=== PATIENT | male | born 1965 ===

== ENCOUNTER 2021-09-08 11:03 | Inpatient (IN) | payer BC, SELFPAY ==
[2021-09-08] MEDS ORDERED: Propofol 1,000 MG/100 ML VIAL IV ONE (11:06)
[2021-09-08 11:24] LABS: Actual Bicarbonate (HCO3a) 24.9 mEq/L (22-28); Analyzer IN Cardio ER; Base Excess (BEa) 1.3 mEq/L (-2.0 to +3.0); CO2 Tension 36.3 mmHg (35.0-45.0); Calcium, Ionized (arterial) 0.93 mmol/L (1.12-1.30); Carboxyhemoglobin (COHb) 0.3 gm% (0.0-3.0); O2 Tension (PaO2), arterial 135.6 mmHg (80.0-100.0); Potassium - ABG Lab 2.32 mmol/L (3.70-5.30); pH, Arterial 7.46 (7.35-7.45)
[2021-09-08 11:25] LABS: ALV-art Gradient 68.575 mmHg (0-20); Puncture Site RBA
[2021-09-08 11:26] LABS: Hemoglobin 14.3 g/dL (14.0-18.0); Mean Corpuscular HGB CONC 33.1 g/dL (32.0-36.0); Mean Corpuscular Hemoglobin 33.2 pg (27.0-31.0); Mean Platelet Volume 8.2 fL (7.4-10.4); Platelet Count 299 thou/uL (130-400); RBC Distribution Width 11.4 % (11.5-14.5); Red Blood Cell (RBC) Count 4.29 mill/uL (4.70-6.10); White Blood Cell (WBC) Count 27.6 thou/uL (4.8-10.8)
[2021-09-08 11:44] LABS: ALT (SGPT) 36 U/L (8-55); AST (SGOT) 55 U/L (5-34); Acetaminophen Less than 10.0 mcg/mL (10.0-30.0); Albumin 3.4 g/dL (3.5-5.0); Alcohol Less than 10 mg/dL (Less than 10); Alkaline Phosphatase 56 U/L (40-110); Anion Gap 17 mmol/L (10-20); BUN (Urea Nitrogen) 10 mg/dL (8.4-25.7); Calc. Creatinine Clearance 0 mL/min (70-130); Calcium 7.3 mg/dL (7.8-10.44); Carbon Dioxide 23 mmol/L (22-29); Chloride 106 mmol/L (98-107); Estimated GFR 77; Glucose 88 mg/dL (70-105); Protein, Total 6.4 g/dL (6.0-8.3); Salicylate Less than 8.0 mg/dL (15.0-30.0); Sodium 143 mmol/L (136-145)
[2021-09-08 11:48] LABS: Band 10 % (5-11); Lymphocytes 4 % (21-51); MDiff Complete? YES; Macrocytosis SLIGHT = 6-15 cells (100X) (0-5/hpf); Monocytes 10 % (0-10); Neutrophil 76 % (42-75); Platelet Morphology Comment Appears Adequate; Polychromasia SLIGHT = 2-3 cells (100X) (0-2/hpf)
[2021-09-08 11:53] LABS: Amphetamine Not Detected (NotDetected); Barbiturates Screen Not Detected (NotDetected); Benzodiazepine Screen Not Detected (NotDetected); Cocaine Metabolite Screen Not Detected (NotDetected); Methadone Not Detected (NotDetected); Methamphetamine Not Detected (NotDetected); Opiate Screen Not Detected (NotDetected); Oxycodone Screen Not Detected (NotDetected); Phencyclidine (PCP) Not Detected (NotDetected); THC/Cannabinoid Screen Detected (NotDetected); Tricyclic Screen Not Detected (NotDetected)
[2021-09-08 12:00] LABS: Potassium 2.6 mmol/L (3.5-5.1)
[2021-09-08] MEDS ORDERED: Potassium Chloride 40 MEQ in Premix Bag 1 BAG IVPB SCH (12:30)
[2021-09-08] MEDS ORDERED: Sodium Chloride 0.9% 1,000 ML IV SCH (12:30)
[2021-09-08] MEDS ORDERED: Fentanyl CADD 100 ML IV SCH (12:30)
[2021-09-08] MEDS ORDERED: Electrolyte Replacement Protocol 1 EACH FS SCH (12:36)
[2021-09-08] MEDS ORDERED: Ondansetron ODT 4 MG TAB PO PRN ×2 (12:36)
[2021-09-08] MEDS ORDERED: Ondansetron PF 4 MG/2 ML Vial IVP PRN (12:36)
[2021-09-08] MEDS ORDERED: Lorazepam 2 MG/ML VIAL IM PRN (12:36)
[2021-09-08] MEDS ORDERED: hydrALAZINE 20 MG/ML VIAL SLOW IVP PRN (12:36)
[2021-09-08] MEDS ORDERED: Lorazepam 1 MG TAB PO PRN (12:36)
[2021-09-08] MEDS ORDERED: Acetaminophen 500 MG TAB PO PRN (12:36)
[2021-09-08] MEDS ORDERED: Labetalol HCl 100 MG/20 ML VIAL SLOW IVP PRN (12:36)
[2021-09-08 13:07] LABS: Magnesium 1.2 mg/dL (1.6-2.6)
[2021-09-08 13:25] LABS: SARS-CoV-2 NAA Rapid Test Not Detected (NotDetected)
[2021-09-08 14:57] LABS: Syphilis Antibody Nonreactive (Nonreactive); Syphilis Antibody Index 0.09 S/CO (<1.00 Non-Reactive)
[2021-09-08] MEDS ORDERED: Magnesium Sulfate In Water 4 GM in Premix Bag 1 BAG IVPB SCH (15:00)
[2021-09-08] MEDS: Lorazepam 1 MG TAB PO SCH ×2 (15:05→17:13)
[2021-09-08] MEDS: Sodium Chloride 0.9% 1,000 ML IV SCH ×2 (15:06→21:04)
[2021-09-08] MEDS: Nicotine 14 MG PATCH TD SCH (15:12)
[2021-09-08] MEDS: Thiamine HCl 200 MG/2 ML VIAL SLOW IVP SCH (15:12)
[2021-09-08] MEDS: Propofol 1,000 MG/100 ML VIAL IV PRN ×2 (16:48→21:05)
[2021-09-08] MEDS ORDERED: Folic Acid 1 MG TAB PO SCH (17:00)
[2021-09-08] MEDS ORDERED: Multivit, Therapeutic 1 TAB PO SCH (17:00)
[2021-09-08] MEDS: Potassium Chloride 20 MEQ in Premix Bag 1 BAG IVPB SCH (17:13)
[2021-09-08] MEDS: Pantoprazole 40 MG VIAL IVP SCH (21:05)
[2021-09-09] MEDS: Lorazepam 1 MG TAB PO SCH ×6 (00:42→21:48)
[2021-09-09 01:09] LABS: Anion Gap 17 mmol/L (10-20); BUN (Urea Nitrogen) 12 mg/dL (8.4-25.7); Calc. Creatinine Clearance 43 mL/min (70-130); Calcium 7.1 mg/dL (7.8-10.44); Carbon Dioxide 17 mmol/L (22-29); Chloride 111 mmol/L (98-107); Estimated GFR 38; Glucose 90 mg/dL (70-105); Potassium 3.4 mmol/L (3.5-5.1); Sodium 142 mmol/L (136-145)
[2021-09-09] MEDS: Potassium Chloride 20 MEQ in Premix Bag 1 BAG IVPB SCH ×3 (01:18→11:56)
[2021-09-09] MEDS: Propofol 1,000 MG/100 ML VIAL IV PRN ×3 (03:07→14:36)
[2021-09-09] MEDS: Sodium Chloride 0.9% 1,000 ML IV SCH ×3 (03:41→18:05)
[2021-09-09 03:53] LABS: #Basophils 0.1 thou/uL (0.0-0.2); #Eosinphils 0.1 thou/uL (0.0-0.7); #Lymphocytes 1.9 thou/uL (1.20-3.40); #Monocytes 1.9 thou/uL (0.11-0.59); %Basophils 0.3 % (0.0-1.0); %Eosinophils 0.6 % (0.0-10.0); %Lymphocytes 10.1 % (21.0-51.0); %Monocytes 9.9 % (0.0-10.0); %Neutrophils 79.1 % (42.0-75.0); Hemoglobin 12.9 g/dL (14.0-18.0); Mean Corpuscular HGB CONC 33.1 g/dL (32.0-36.0); Mean Corpuscular Hemoglobin 33.9 pg (27.0-31.0); Mean Platelet Volume 7.8 fL (7.4-10.4); Platelet Count 254 thou/uL (130-400); RBC Distribution Width 11.4 % (11.5-14.5); Red Blood Cell (RBC) Count 3.79 mill/uL (4.70-6.10); White Blood Cell (WBC) Count 18.9 thou/uL (4.8-10.8)
[2021-09-09 04:16] LABS: ALT (SGPT) 30 U/L (8-55); AST (SGOT) 58 U/L (5-34); Albumin 2.9 g/dL (3.5-5.0); Alkaline Phosphatase 53 U/L (40-110); Anion Gap 15 mmol/L (10-20); BUN (Urea Nitrogen) 12 mg/dL (8.4-25.7); Bilirubin, Total 0.5 mg/dL (0.2-1.2); Calc. Creatinine Clearance 39 mL/min (70-130); Calcium 6.9 mg/dL (7.8-10.44); Carbon Dioxide 21 mmol/L (22-29); Chloride 110 mmol/L (98-107); Estimated GFR 33; Globulin 2.9 g/dL (2.4-3.5); Glucose 90 mg/dL (70-105); Protein, Total 5.8 g/dL (6.0-8.3); Sodium 143 mmol/L (136-145)
[2021-09-09 04:39] LABS: Thyroid Stimulating Hormone 1.6824 uIU/mL (0.35-4.94)
[2021-09-09 07:17] LABS: Actual Bicarbonate (HCO3a) 20.3 mEq/L (22-28); Base Excess (BEa) -5.8 mEq/L (-2.0 to +3.0); CO2 Tension 42.2 mmHg (35.0-45.0); Calcium, Ionized (arterial) 1.01 mmol/L (1.12-1.30); Carboxyhemoglobin (COHb) 0.2 gm% (0.0-3.0); Potassium - ABG Lab 3.26 mmol/L (3.70-5.30)
[2021-09-09] MEDS: Folic Acid 1 MG TAB PO SCH (09:23)
[2021-09-09] MEDS: Pantoprazole 40 MG VIAL IVP SCH ×2 (09:24→21:49)
[2021-09-09] MEDS: Multivit, Therapeutic 1 TAB PO SCH (09:24)
[2021-09-09 11:50] LABS: Puncture Site LRA
[2021-09-09] MEDS ORDERED: Lorazepam 1 MG TAB PO PRN (12:30)
[2021-09-09] MEDS: Nicotine 14 MG PATCH TD SCH (13:02)
[2021-09-09] MEDS: Thiamine HCl 200 MG/2 ML VIAL SLOW IVP SCH (13:03)
[2021-09-09] MEDS: Atorvastatin Calcium 20 MG TAB PO SCH (21:48)
[2021-09-10] MEDS: Propofol 1,000 MG/100 ML VIAL IV PRN (01:37)
[2021-09-10 03:55] LABS: #Basophils 0.1 thou/uL (0.0-0.2); #Eosinphils 0.2 thou/uL (0.0-0.7); #Lymphocytes 1.7 thou/uL (1.20-3.40); #Monocytes 1.3 thou/uL (0.11-0.59); #Neutrophils 12.3 thou/uL (1.40-6.50); %Basophils 0.4 % (0.0-1.0); %Eosinophils 1.1 % (0.0-10.0); %Monocytes 8.3 % (0.0-10.0); %Neutrophils 79.3 % (42.0-75.0); Hemoglobin 12.1 g/dL (14.0-18.0); Mean Corpuscular Hemoglobin 35.6 pg (27.0-31.0); Mean Platelet Volume 8.3 fL (7.4-10.4); Platelet Count 213 thou/uL (130-400); RBC Distribution Width 11.3 % (11.5-14.5); Red Blood Cell (RBC) Count 3.39 mill/uL (4.70-6.10); White Blood Cell (WBC) Count 15.5 thou/uL (4.8-10.8)
[2021-09-10 04:17] LABS: Anion Gap 16 mmol/L (10-20); BUN (Urea Nitrogen) 17 mg/dL (8.4-25.7); Calc. Creatinine Clearance 35 mL/min (70-130); Calcium 6.6 mg/dL (7.8-10.44); Carbon Dioxide 17 mmol/L (22-29); Chloride 113 mmol/L (98-107); Estimated GFR 29; Glucose 80 mg/dL (70-105); Sodium 143 mmol/L (136-145)
[2021-09-10] MEDS: Lorazepam 1 MG TAB PO SCH ×3 (04:29→16:53)
[2021-09-10] MEDS: Sodium Chloride 0.9% 1,000 ML IV SCH ×3 (04:30→20:28)
[2021-09-10] MEDS: Potassium Chloride 20 MEQ in Premix Bag 1 BAG IVPB SCH ×2 (06:27→09:15)
[2021-09-10] MEDS ORDERED: Piperacillin/Tazobactam 3.375 GM in Sodium Chloride 0.9% 100 ML IVPB SCH (08:45)
[2021-09-10] MEDS: Folic Acid 1 MG TAB PO SCH (09:25)
[2021-09-10] MEDS: Multivit, Therapeutic 1 TAB PO SCH (09:25)
[2021-09-10] MEDS: Aspirin Chewable 81 MG TAB PO SCH (09:25)
[2021-09-10] MEDS: Pantoprazole 40 MG VIAL IVP SCH ×2 (09:26→20:18)
[2021-09-10] MEDS ORDERED: Lorazepam 1 MG TAB PO PRN (12:30)
[2021-09-10] MEDS: Lorazepam 0.5 MG TAB PO SCH ×3 (13:39→23:35)
[2021-09-10] MEDS: Nicotine 14 MG PATCH TD SCH (13:50)
[2021-09-10] MEDS: Piperacillin/Tazobactam 3.375 GM in Sodium Chloride 0.9% 100 ML IVPB SCH ×2 (13:51→20:18)
[2021-09-10] MEDS: Thiamine HCl 200 MG/2 ML VIAL SLOW IVP SCH (13:52)
[2021-09-10] MEDS: Lorazepam 0.5 MG TAB PO PRN (14:23)
[2021-09-10] MEDS ORDERED: Acetaminophen 500 MG TAB PO PRN (18:40)
[2021-09-10] MEDS: Atorvastatin Calcium 20 MG TAB PO SCH (20:18)
[2021-09-11 04:16] LABS: Anion Gap 21 mmol/L (10-20); BUN (Urea Nitrogen) 19 mg/dL (8.4-25.7); Calc. Creatinine Clearance 36 mL/min (70-130); Calcium 7.2 mg/dL (7.8-10.44); Carbon Dioxide 14 mmol/L (22-29); Chloride 115 mmol/L (98-107); Estimated GFR 29; Glucose 119 mg/dL (70-105); Sodium 147 mmol/L (136-145)
[2021-09-11] MEDS: Sodium Chloride 0.9% 1,000 ML IV SCH ×3 (04:42→20:03)
[2021-09-11] MEDS: Piperacillin/Tazobactam 3.375 GM in Sodium Chloride 0.9% 100 ML IVPB SCH ×2 (06:12→12:01)
[2021-09-11] MEDS: Lorazepam 0.5 MG TAB PO SCH ×2 (06:12→12:01)
[2021-09-11] MEDS: Folic Acid 1 MG TAB PO SCH (08:53)
[2021-09-11] MEDS: Multivit, Therapeutic 1 TAB PO SCH (08:53)
[2021-09-11] MEDS: Thiamine 100 MG TAB PO SCH (08:53)
[2021-09-11] MEDS: Aspirin Chewable 81 MG TAB PO SCH (08:53)
[2021-09-11] MEDS: Pantoprazole 40 MG VIAL IVP SCH ×2 (08:54→20:03)
[2021-09-11] MEDS: Potassium Chloride 20 MEQ in Premix Bag 1 BAG IVPB SCH ×2 (08:57→12:41)
[2021-09-11] MEDS ORDERED: methylPREDNISolone Sod Succ/PF 125 MG/2 ML VIAL IVP SCH (09:00)
[2021-09-11] MEDS: Nicotine 14 MG PATCH TD SCH (12:01)
[2021-09-11] MEDS: Lorazepam 2 MG/ML VIAL SLOW IVP PRN ×2 (20:03→22:38)
[2021-09-11] MEDS ORDERED: Amoxicillin/Potassium Clav 875 MG TAB PO SCH (21:00)
[2021-09-11] MEDS: Amoxicillin/Potassium Clav 875 MG TAB PO SCH (22:16)
[2021-09-11] MEDS: Atorvastatin Calcium 20 MG TAB PO SCH (22:16)
[2021-09-12] MEDS: Lorazepam 2 MG/ML VIAL SLOW IVP PRN (01:41)
[2021-09-12] MEDS ORDERED: Ziprasidone 20 MG VIAL IM SCH (01:45)
[2021-09-12] MEDS ORDERED: Sterile Water 10 ML VIAL FS PRN (01:45)
[2021-09-12] MEDS: Sodium Chloride 0.9% 1,000 ML IV SCH ×2 (04:42→13:44)
[2021-09-12 07:30] LABS: Anion Gap 17 mmol/L (10-20); BUN (Urea Nitrogen) 15 mg/dL (8.4-25.7); Calc. Creatinine Clearance 59 mL/min (70-130); Carbon Dioxide 20 mmol/L (22-29); Chloride 114 mmol/L (98-107); Estimated GFR 51; Glucose 112 mg/dL (70-105); Potassium 3.4 mmol/L (3.5-5.1); Sodium 148 mmol/L (136-145)
[2021-09-12] MEDS: Pantoprazole 40 MG VIAL IVP SCH ×2 (09:53→21:01)
[2021-09-12] MEDS: Amoxicillin/Potassium Clav 875 MG TAB PO SCH ×2 (10:28→21:01)
[2021-09-12] MEDS: Thiamine 100 MG TAB PO SCH (10:28)
[2021-09-12] MEDS: Aspirin Chewable 81 MG TAB PO SCH (10:28)
[2021-09-12] MEDS: Multivit, Therapeutic 1 TAB PO SCH (10:28)
[2021-09-12] MEDS: Folic Acid 1 MG TAB PO SCH (10:28)
[2021-09-12 13:40] VITALS: BMI 24.7
[2021-09-12] MEDS: Nicotine 14 MG PATCH TD SCH (13:44)
[2021-09-12] MEDS: Metoprolol Tartrate 50 MG TAB PO SCH (20:59)
[2021-09-12] MEDS: Atorvastatin Calcium 20 MG TAB PO SCH (21:01)
[2021-09-12] MEDS: Lorazepam 0.5 MG TAB PO PRN (22:23)
[2021-09-13] MEDS: Lorazepam 2 MG/ML VIAL SLOW IVP PRN (00:39)
[2021-09-13 05:42] LABS: #Eosinphils 0.1 thou/uL (0.0-0.7); #Lymphocytes 2.2 thou/uL (1.20-3.40); #Monocytes 1.8 thou/uL (0.11-0.59); %Basophils 0.1 % (0.0-1.0); %Eosinophils 0.7 % (0.0-10.0); %Lymphocytes 12.9 % (21.0-51.0); %Monocytes 10.5 % (0.0-10.0); %Neutrophils 75.8 % (42.0-75.0); Hemoglobin 13.6 g/dL (14.0-18.0); Mean Corpuscular HGB CONC 34.1 g/dL (32.0-36.0); Mean Corpuscular Hemoglobin 34.1 pg (27.0-31.0); Platelet Count 337 thou/uL (130-400); RBC Distribution Width 11.6 % (11.5-14.5); Red Blood Cell (RBC) Count 3.98 mill/uL (4.70-6.10); White Blood Cell (WBC) Count 17.2 thou/uL (4.8-10.8)
[2021-09-13 06:04] LABS: Anion Gap 18 mmol/L (10-20); BUN (Urea Nitrogen) 13 mg/dL (8.4-25.7); Calc. Creatinine Clearance 77 mL/min (70-130); Calcium 8.5 mg/dL (7.8-10.44); Carbon Dioxide 23 mmol/L (22-29); Chloride 107 mmol/L (98-107); Estimated GFR 71; Glucose 104 mg/dL (70-105); Phosphorus 2.8 mg/dL (2.3-4.7); Sodium 145 mmol/L (136-145)
[2021-09-13] MEDS: Sodium Chloride 0.9% 1,000 ML IV SCH ×3 (06:13→18:01)
[2021-09-13 06:19] LABS: Magnesium 0.8 mg/dL (1.6-2.6); Potassium 2.9 mmol/L (3.5-5.1)
[2021-09-13] MEDS ORDERED: Electrolyte Replacement Protocol FS PRN (06:45)
[2021-09-13] MEDS ORDERED: Potassium Chloride 20 MEQ TAB PO SCH ×3 (08:15→17:00)
[2021-09-13] MEDS ORDERED: Magnesium Sulfate 4 GM in Sodium Chloride 0.9% 250 ML 250 ML IVPB SCH (08:15)
[2021-09-13] MEDS: Lorazepam 0.5 MG TAB PO PRN ×3 (08:39→21:49)
[2021-09-13] MEDS: Aspirin Chewable 81 MG TAB PO SCH (08:41)
[2021-09-13] MEDS: Amoxicillin/Potassium Clav 875 MG TAB PO SCH ×2 (08:41→21:49)
[2021-09-13] MEDS: Folic Acid 1 MG TAB PO SCH (08:41)
[2021-09-13] MEDS: Metoprolol Tartrate 50 MG TAB PO SCH ×2 (08:42→21:49)
[2021-09-13] MEDS: Pantoprazole 40 MG VIAL IVP SCH ×2 (08:42→21:49)
[2021-09-13] MEDS: Multivit, Therapeutic 1 TAB PO SCH (08:42)
[2021-09-13] MEDS: Thiamine 100 MG TAB PO SCH (08:42)
[2021-09-13] MEDS ORDERED: Magnesium Sulfate In Water 4 GM in Premix Bag 1 BAG IVPB SCH (09:00)
[2021-09-13] MEDS: Nicotine 14 MG PATCH TD SCH (11:58)
[2021-09-13 13:51] LABS: Anion Gap 15 mmol/L (10-20); BUN (Urea Nitrogen) 13 mg/dL (8.4-25.7); Calc. Creatinine Clearance 83 mL/min (70-130); Calcium 8.5 mg/dL (7.8-10.44); Carbon Dioxide 25 mmol/L (22-29); Chloride 106 mmol/L (98-107); Estimated GFR 77; Glucose 147 mg/dL (70-105); Magnesium 2.3 mg/dL (1.6-2.6); Sodium 143 mmol/L (136-145)
[2021-09-13] MEDS: Atorvastatin Calcium 20 MG TAB PO SCH (21:48)
[2021-09-14 04:46] LABS: #Basophils 0.1 thou/uL (0.0-0.2); #Eosinphils 0.1 thou/uL (0.0-0.7); #Lymphocytes 2.4 thou/uL (1.20-3.40); #Monocytes 1.3 thou/uL (0.11-0.59); #Neutrophils 8.3 thou/uL (1.40-6.50); %Basophils 0.5 % (0.0-1.0); %Eosinophils 0.9 % (0.0-10.0); %Lymphocytes 19.7 % (21.0-51.0); %Monocytes 10.9 % (0.0-10.0); Hemoglobin 13.8 g/dL (14.0-18.0); Mean Corpuscular HGB CONC 33.4 g/dL (32.0-36.0); Mean Corpuscular Hemoglobin 33.5 pg (27.0-31.0); Mean Platelet Volume 7.7 fL (7.4-10.4); Platelet Count 364 thou/uL (130-400); RBC Distribution Width 11.5 % (11.5-14.5); Red Blood Cell (RBC) Count 4.11 mill/uL (4.70-6.10); White Blood Cell (WBC) Count 12.2 thou/uL (4.8-10.8)
[2021-09-14] MEDS: Sodium Chloride 0.9% 1,000 ML IV SCH ×2 (04:47→12:07)
[2021-09-14 05:21] LABS: Anion Gap 16 mmol/L (10-20); BUN (Urea Nitrogen) 10 mg/dL (8.4-25.7); Calc. Creatinine Clearance 101 mL/min (70-130); Calcium 8.3 mg/dL (7.8-10.44); Carbon Dioxide 25 mmol/L (22-29); Chloride 106 mmol/L (98-107); Estimated GFR 97; Glucose 100 mg/dL (70-105); Sodium 144 mmol/L (136-145)
[2021-09-14 05:32] LABS: Potassium 2.9 mmol/L (3.5-5.1)
[2021-09-14] MEDS ORDERED: Potassium Bicarbonate/Cit Ac 20 MEQ TAB PO SCH (06:00)
[2021-09-14] MEDS: Pantoprazole 40 MG VIAL IVP SCH ×2 (08:41→19:58)
[2021-09-14] MEDS: Metoprolol Tartrate 50 MG TAB PO SCH ×2 (08:43→19:58)
[2021-09-14] MEDS: Aspirin Chewable 81 MG TAB PO SCH (08:44)
[2021-09-14] MEDS: Amoxicillin/Potassium Clav 875 MG TAB PO SCH ×2 (08:44→19:58)
[2021-09-14] MEDS: Folic Acid 1 MG TAB PO SCH (08:45)
[2021-09-14] MEDS: Potassium Chloride 20 MEQ TAB PO SCH (08:46)
[2021-09-14] MEDS: Thiamine 100 MG TAB PO SCH (08:46)
[2021-09-14] MEDS: Multivit, Therapeutic 1 TAB PO SCH (08:47)
[2021-09-14] MEDS: Potassium Chloride 20 MEQ in Premix Bag 1 BAG IVPB SCH ×2 (08:56→12:07)
[2021-09-14] MEDS ORDERED: Potassium Chloride 40 MEQ in Premix Bag 1 BAG IVPB SCH (09:00)
[2021-09-14] MEDS: Nicotine 14 MG PATCH TD SCH (13:34)
[2021-09-14 14:07] LABS: Anion Gap 14 mmol/L (10-20); BUN (Urea Nitrogen) 10 mg/dL (8.4-25.7); Calc. Creatinine Clearance 105 mL/min (70-130); Calcium 8.5 mg/dL (7.8-10.44); Carbon Dioxide 28 mmol/L (22-29); Chloride 103 mmol/L (98-107); Estimated GFR 100; Glucose 130 mg/dL (70-105); Potassium 3.2 mmol/L (3.5-5.1); Sodium 142 mmol/L (136-145)
[2021-09-14] MEDS: Atorvastatin Calcium 20 MG TAB PO SCH (19:58)
[2021-09-15 04:44] LABS: #Basophils 0.1 thou/uL (0.0-0.2); #Eosinphils 0.3 thou/uL (0.0-0.7); #Lymphocytes 3.1 thou/uL (1.20-3.40); #Monocytes 1.4 thou/uL (0.11-0.59); %Basophils 0.5 % (0.0-1.0); %Eosinophils 2.1 % (0.0-10.0); %Lymphocytes 24.4 % (21.0-51.0); %Monocytes 10.8 % (0.0-10.0); %Neutrophils 62.2 % (42.0-75.0); Hemoglobin 14.1 g/dL (14.0-18.0); Mean Corpuscular HGB CONC 33.5 g/dL (32.0-36.0); Mean Corpuscular Hemoglobin 33.8 pg (27.0-31.0); Mean Platelet Volume 8.2 fL (7.4-10.4); Platelet Count 368 thou/uL (130-400); RBC Distribution Width 11.4 % (11.5-14.5); Red Blood Cell (RBC) Count 4.18 mill/uL (4.70-6.10); White Blood Cell (WBC) Count 12.8 thou/uL (4.8-10.8)
[2021-09-15 05:20] LABS: Anion Gap 14 mmol/L (10-20); BUN (Urea Nitrogen) 10 mg/dL (8.4-25.7); Calc. Creatinine Clearance 105 mL/min (70-130); Calcium 8.4 mg/dL (7.8-10.44); Carbon Dioxide 31 mmol/L (22-29); Chloride 101 mmol/L (98-107); Estimated GFR 100; Glucose 102 mg/dL (70-105); Sodium 143 mmol/L (136-145)
[2021-09-15 05:46] LABS: Magnesium 0.9 mg/dL (1.6-2.6); Potassium 2.7 mmol/L (3.5-5.1)
[2021-09-15] MEDS: Potassium Chloride 20 MEQ TAB PO SCH ×3 (06:22→11:07)
[2021-09-15] MEDS ORDERED: WATER IVPB SCH (06:30)
[2021-09-15] MEDS ORDERED: MAGNESIUM SULFATE IVPB SCH (06:30)
[2021-09-15] MEDS: Pantoprazole 40 MG VIAL IVP SCH ×2 (07:25→20:28)
[2021-09-15] MEDS: Thiamine 100 MG TAB PO SCH (07:28)
[2021-09-15] MEDS: Aspirin Chewable 81 MG TAB PO SCH (07:28)
[2021-09-15] MEDS: Amoxicillin/Potassium Clav 875 MG TAB PO SCH ×2 (07:28→20:28)
[2021-09-15] MEDS: Metoprolol Tartrate 50 MG TAB PO SCH ×2 (07:29→20:28)
[2021-09-15] MEDS: Folic Acid 1 MG TAB PO SCH (07:29)
[2021-09-15] MEDS: Multivit, Therapeutic 1 TAB PO SCH (07:29)
[2021-09-15] MEDS: Nicotine 14 MG PATCH TD SCH (12:31)
[2021-09-15 13:27] LABS: Potassium 3.1 mmol/L (3.5-5.1)
[2021-09-15 14:12] LABS: Anion Gap 11 mmol/L (10-20); BUN (Urea Nitrogen) 14 mg/dL (8.4-25.7); Calc. Creatinine Clearance 106 mL/min (70-130); Calcium 8.5 mg/dL (7.8-10.44); Carbon Dioxide 30 mmol/L (22-29); Chloride 102 mmol/L (98-107); Estimated GFR 101; Glucose 117 mg/dL (70-105); Magnesium 1.8 mg/dL (1.6-2.6); Potassium 3.2 mmol/L (3.5-5.1); Sodium 140 mmol/L (136-145)
[2021-09-15] MEDS ORDERED: Potassium Chloride 20 MEQ TAB PO SCH (18:30)
[2021-09-15] MEDS ORDERED: Magnesium Oxide 400 MG TAB PO SCH (18:30)
[2021-09-15] MEDS: Atorvastatin Calcium 20 MG TAB PO SCH (20:28)
[2021-09-16 05:55] LABS: ALT (SGPT) 34 U/L (8-55); AST (SGOT) 26 U/L (5-34); Albumin 3.2 g/dL (3.5-5.0); Alkaline Phosphatase 63 U/L (40-110); Anion Gap 13 mmol/L (10-20); BUN (Urea Nitrogen) 12 mg/dL (8.4-25.7); Bilirubin, Total 0.5 mg/dL (0.2-1.2); Calc. Creatinine Clearance 108 mL/min (70-130); Calcium 8.7 mg/dL (7.8-10.44); Carbon Dioxide 33 mmol/L (22-29); Chloride 101 mmol/L (98-107); Estimated GFR 101; Globulin 3.6 g/dL (2.4-3.5); Glucose 103 mg/dL (70-105); Magnesium 1.3 mg/dL (1.6-2.6); Potassium 3.5 mmol/L (3.5-5.1); Protein, Total 6.8 g/dL (6.0-8.3); Sodium 143 mmol/L (136-145)
[2021-09-16] MEDS ORDERED: Magnesium Sulfate In Water 4 GM in Premix Bag 1 BAG IVPB SCH (08:00)
[2021-09-16] MEDS ORDERED: Potassium Chloride 20 MEQ TAB PO SCH (08:00)
[2021-09-16] MEDS: Pantoprazole 40 MG VIAL IVP SCH ×2 (08:42→20:08)
[2021-09-16] MEDS: Thiamine 100 MG TAB PO SCH (08:43)
[2021-09-16] MEDS: Potassium Chloride 20 MEQ TAB PO SCH (08:43)
[2021-09-16] MEDS: Folic Acid 1 MG TAB PO SCH (08:43)
[2021-09-16] MEDS: Aspirin Chewable 81 MG TAB PO SCH (08:43)
[2021-09-16] MEDS: Amoxicillin/Potassium Clav 875 MG TAB PO SCH ×2 (08:43→20:08)
[2021-09-16] MEDS: Multivit, Therapeutic 1 TAB PO SCH (08:44)
[2021-09-16] MEDS: Magnesium Oxide 400 MG TAB PO SCH (08:44)
[2021-09-16] MEDS: Metoprolol Tartrate 50 MG TAB PO SCH ×2 (08:44→20:08)
[2021-09-16] MEDS: Nicotine 14 MG PATCH TD SCH (13:26)
[2021-09-16] MEDS: Atorvastatin Calcium 20 MG TAB PO SCH (20:08)
[2021-09-17 05:36] LABS: Anion Gap 13 mmol/L (10-20); BUN (Urea Nitrogen) 14 mg/dL (8.4-25.7); Calc. Creatinine Clearance 114 mL/min (70-130); Calcium 8.9 mg/dL (7.8-10.44); Carbon Dioxide 29 mmol/L (22-29); Chloride 102 mmol/L (98-107); Estimated GFR 103; Glucose 108 mg/dL (70-105); Magnesium 1.3 mg/dL (1.6-2.6); Potassium 3.9 mmol/L (3.5-5.1); Sodium 140 mmol/L (136-145)
[2021-09-17] MEDS ORDERED: Magnesium Sulfate In Water 4 GM in Premix Bag 1 BAG IVPB SCH (08:00)
[2021-09-17] MEDS: Folic Acid 1 MG TAB PO SCH (08:50)
[2021-09-17] MEDS: Aspirin Chewable 81 MG TAB PO SCH (08:50)
[2021-09-17] MEDS: Multivit, Therapeutic 1 TAB PO SCH (08:50)
[2021-09-17] MEDS: Metoprolol Tartrate 50 MG TAB PO SCH ×2 (08:51→21:26)
[2021-09-17] MEDS: Amoxicillin/Potassium Clav 875 MG TAB PO SCH (08:51)
[2021-09-17] MEDS: Potassium Chloride 20 MEQ TAB PO SCH (08:51)
[2021-09-17] MEDS: Pantoprazole 40 MG VIAL IVP SCH (08:51)
[2021-09-17] MEDS: Magnesium Oxide 400 MG TAB PO SCH (08:51)
[2021-09-17] MEDS: Thiamine 100 MG TAB PO SCH (08:51)
[2021-09-17] MEDS: Nicotine 14 MG PATCH TD SCH (14:01)
[2021-09-17] MEDS: Atorvastatin Calcium 20 MG TAB PO SCH (21:26)
[2021-09-18 05:37] LABS: Anion Gap 15 mmol/L (10-20); BUN (Urea Nitrogen) 13 mg/dL (8.4-25.7); Calc. Creatinine Clearance 122 mL/min (70-130); Calcium 9.3 mg/dL (7.8-10.44); Carbon Dioxide 26 mmol/L (22-29); Chloride 104 mmol/L (98-107); Estimated GFR 105; Glucose 99 mg/dL (70-105); Magnesium 1.4 mg/dL (1.6-2.6); Sodium 141 mmol/L (136-145)
[2021-09-18] MEDS ORDERED: Magnesium Sulfate In Water 4 GM in Premix Bag 1 BAG IVPB SCH (08:00)
[2021-09-18] MEDS: Multivit, Therapeutic 1 TAB PO SCH (08:30)
[2021-09-18] MEDS: Potassium Chloride 20 MEQ TAB PO SCH (08:30)
[2021-09-18] MEDS: Magnesium Oxide 400 MG TAB PO SCH (08:30)
[2021-09-18] MEDS: Metoprolol Tartrate 50 MG TAB PO SCH (08:30)
[2021-09-18] MEDS: Aspirin Chewable 81 MG TAB PO SCH (08:30)
[2021-09-18] MEDS: Thiamine 100 MG TAB PO SCH (08:30)
[2021-09-18] MEDS: Folic Acid 1 MG TAB PO SCH (10:14)
[2021-09-18 11:45] VITALS: TEMP 98
[2021-09-18] MEDS: Nicotine 14 MG PATCH TD SCH (14:44)
[2021-09-18 15:57] VITALS: BP 128/91
== END 2021-09-18 15:57 | disposition home health service (06) | DRG 208 ==
LOC: ERS 11:03 → CCU 11:25 → NEURO 09-11 10:50
PROVIDERS: ADMIT Internal Medicine; ATTEND Internal Medicine
PROC: 5A1945Z Respiratory Ventilation, 24-96 Consecutive Hours (ICD-10-PCS; principal; 2021-09-08)
DX: J96.01 Acute respiratory failure with hypoxia (principal); J69.0 Pneumonitis due to inhalation of food and vomit; G92.8 Other toxic encephalopathy; G40.89 Other seizures; F10.239 Alcohol dependence with withdrawal, unspecified; N17.9 Acute kidney failure, unspecified; E87.2 Acidosis; Z20.822 Contact with and (suspected) exposure to COVID-19; G47.33 Obstructive sleep apnea (adult) (pediatric); Y90.0 Blood alcohol level of less than 20 mg/100 ml; E83.51 Hypocalcemia; E87.6 Hypokalemia; E83.42 Hypomagnesemia; I12.9 Hypertensive chronic kidney disease with stage 1 through stage 4 chronic kidney disease, or unspecified chronic kidney disease; N18.9 Chronic kidney disease, unspecified; F10.229 Alcohol dependence with intoxication, unspecified; F12.10 Cannabis abuse, uncomplicated; I95.9 Hypotension, unspecified; Z28.311 Partially vaccinated for COVID-19; Z79.82 Long term (current) use of aspirin; Z79.899 Other long term (current) drug therapy; Z78.1 Physical restraint status; Z98.890 Other specified postprocedural states; Z86.73 Personal history of transient ischemic attack (TIA), and cerebral infarction without residual deficits; Z91.013 Allergy to seafood; T51.0X1A Toxic effect of ethanol, accidental (unintentional), initial encounter
CPT/HCPCS: 36415; 36600; 71045; 80048; 80053; 80306; 80307; 82607; 82746; 82805; 83605; 83735; 84100; 84146; 84443; 85025; 86780; 93005; 93306; 94002; 94003; 94640; 96365; 96366; 96368; 99292; C9113; J2060; J2543; J2704; J2930; J3010; J3411; J3475; J3480; J3486; J3490; J7050; J7620; U0002; U0003; U0005